=== PATIENT | male | born 1950 | race Caucasian/White ===

== ENCOUNTER 2020-03-30 00:43 | Outpatient (CLI) | payer MEDICARE, SELFPAY ==
[2020-03-30 16:39] LABS: SARS-CoV-2 RNA PCR Negative
== END 2020-03-30 00:44 | disposition home or self-care (01) ==
LOC: ANHCOVIDDT 00:43
PROVIDERS: PCP Family Medicine; Visit Provider Internal Medicine Gastroenterology
DX: Z01.812 Encounter for preprocedural laboratory examination (principal); Z20.828 Contact with and (suspected) exposure to other viral communicable diseases
CPT/HCPCS: 87635; C9803; U0003

== ENCOUNTER 2020-04-02 04:15 | Inpatient (IN) | payer MEDICARE, SELFPAY ==
[2020-04-02] VITALS (12 sets, daily range): BP systolic 132–172; BP diastolic 76–86; PULSE 63–74; RESP 20–24; TEMP 35.8–36.7; O2SAT 97–100; BMI 28.4
--- NOTE | 2020-04-02 04:32 | PC.NURSE ---
0348 RECEIVED REPORT FROM NILSA WELCH AT [facility].
--- NOTE | 2020-04-02 04:33 | ADMGEN ---
This patient, Jose Perez, was admitted to IMU Room 213-01 FROM [facility] PER STRETCHER 04/02/20 7924. Patient/family oriented to hospital policies and general routines including ID bracelet, bed and alarms, visiting hours, pain management, procedures, bathroom and other care routines, personal items, smoking policy, room service/diet, and visiting hours. Valuables list has been completed. Information on how to activate the Rapid Response Team has been discussed. Patient/Family are encouraged to report perceived risks to care and to ask questions if they do not understand what they are told or what they should do.
[2020-04-02 05:00] LABS: Basophils Percent Auto 0.2 % (0.2-1.2); Eosinophils Absolute Auto 0.1 K/mm3 (0-0.3); Eosinophils Percent Auto 0.5 % (0-4.4); Hematocrit 32.3 % (42.0-52.0); Hemoglobin 10.3 g/dL (14.0-18.0); Immature Granulocyte Absolute 0.04 K/mm3 (0.00-0.031); Immature Granulocyte Percent A 0.4 % (0-0.5); Lymphocytes Absolute Auto 0.92 K/mm3 (0.9-3.2); Lymphocytes Percent Auto 9.5 % (18.3-44.2); Mean Corpuscular HGB Conc 31.9 g/dl (32-36); Mean Corpuscular Hemoglobin 27.8 pg (26-34); Mean Corpuscular Volume 87.3 fl (80-100); Mean Platelet Volume 10.9 fl (7.4-10.4); Monocytes Absolute Auto 0.3 K/mm3 (0.1-0.6); Monocytes Percent Auto 3.4 % (2.6-8.5); Neutrophils Absolute Auto 8.3 K/mm3 (1.3-6.7); Platelet Count Result 223 k/mm3 (150-375); Red Cell Distribution Width 15.3 % (11.5-14.5); White Blood Count 9.6 K/mm3 (4.5-10.0)
[2020-04-02 05:16] LABS: Blood Urea Nitrogen 24 mg/dL (9-20); Carbon Dioxide 29 mmol/L (22-30); Chloride 100 mmol/L (98-107); Estimated CRCL calculation 31 ml/min; Estimated Glomerular Filt Rate 31; Glucose 109 mg/dL (75-110); Potassium 3.4 mmol/L (3.4-5.0); Sodium 137 mmol/L (137-145)
[2020-04-02 05:27] LABS: Troponin I 0.084 ng/mL (0.000-0.034)
--- NOTE | 2020-04-02 05:48 | PC.NURSE ---
0548 NOTIFIED OF PT. ADM. TO IMU AND ELEVATED TROP. AND THAT PT. WAS SCHEDULED FOR OP COLONOSCOPY. NO NEW ORDERS.
[2020-04-02 06:02] LABS: Thyroid Stimulating Hormone Reflex 0.461 uIU/mL (0.465-4.68)
[2020-04-02] MEDS: SODIUM CHLORIDE 0.9% IV 1,000 ML 100 ML IV CONT (06:21)
[2020-04-02 06:42] LABS: Free T4 Free Thyroxine Reflex 1.49 ng/dL (0.78-2.19)
--- NOTE | 2020-04-02 07:36 | PM.IMHP ---
H&P: HPI History of Present Illness Chief complaint: presyncope, elevated trop Narrative: Jose Perez is a 69 year old male with hx of CHF, AICD placement and CAD transferred from [place] for nausea, vomiting and diarrhea. Yesterday afternoon, patient developed watery diarrhea with nausea and vomiting. He is currently undergoing bowel prep screening colonoscopy. He consumed about half a gallon of GoLYTELY; his symptoms began about one hour after starting prep. No chest pain or shortness of breath. No abdominal pain or fever. No hematochezia. Patient had not eaten breakfast or lunch that day but only had coffee. Patient developed dizziness and lightheadedness and presented to outside ER for evaluation. The emergency room, patient's vital signs were stable. CT of the brain was normal. CXR clear. EKG showed normal sinus rhythm with 1st degree AV block and PVCs. T-wave changes in the lateral leads noted. BNP was 1390. Troponin was elevated 0.071. Creatinine was 2.0 with potassium 2.8 hemoglobin is low at 10.3. Patient may have had some blood in his stool with diarrhea. Patient was given Zofran, IV fluids, aspirin and potassium. There were no beds available so patient transferred to our facility for further care. Here, patient was started on IV fluids. Troponin remained elevated at 0.084 but flat. Creatinine 2.1. Old creatinine from 2017 was 1.4. COVID-19 test on March 30 was negative. Patient this morning feels well. He is requesting discharge. Patient has AICD for his cardiomyopathy. His AICD has not fired since placement. His last chemical stress test was 1 year ago and was normal. The patietn sees Dr Moreno, cardiology. Review of Systems Review of Systems: Narrative: Patient does have chronic tinnitus. Patient did have a 30 lb weight loss over the past 6 months. He has not been trying to lose weight. He denies any night sweats or fevers. All systems reviewed & are unremarkable except as noted in HPI and below PMFSH Past Medical History Medical History Aortic regurgitation Moderate by Echo 05/2019 CAD (coronary artery disease) History of myocardial infarction x2 and stents Cardiac defibrillator in situ Cardiomyopathy With history of AICD placement: Echo May 2019 with EF 25% with severe global HK, severe LV septal hypertrophy and DD grade 1. Severe LAE Constipation Dyslipidemia Gout History of CVA (cerebrovascular accident) 2014 Lumbar spinal stenosis Peripheral vascular disease With history of right femoral stent placement Weight loss Surgical History Surgical History History of AAA (abdominal aortic aneurysm) repair Hx of lumbosacral spine surgery 2016 Family History Family History Mother Myocardial infarct Father Myocardial infarct Sibling Heart disease Cerebrovascular accident Lung cancer Social History Social History (Updated 04/02/20 @ 09:47 by Eduar Pitt MD) Social History: Lives alone. . Smokes 1ppd x 40yrs. Denies alcohol or drug use. Full code. Nominates his sonMario to be the individual who would make decisions for him if he is unable. Smoking packs per day: 1 Smoking cigarettes per day: 20.0 Years smoked: 40 Smoking pack-years: 40.00 Smoking status: Former smoker Tobacco type: cigarettes Smoking end date: 10/25/18 Alcohol intake: former Drinks per week: 3 Substance use: never Gender identity (if verbalized by the patient): Male Spiritual care concerns: No Meds Home Medications and Allergies Home Medications Medication Instructions Recorded Confirmed Type carvedilol 25 mg tablet 25 mg PO Q12H 09/05/19 04/02/20 History chlorthalidone 25 mg tablet 25 mg PO DAILY 09/05/19 04/02/20 History docusate sodium [Colace] 100 mg PO DAILY 03/28/20 04/02/20 History Allergies A
[2020-04-02 07:38] LABS: Total Triiodothyronine (T3) 1.01 NG/ML (0.97-1.69)
[2020-04-02 08:20] LABS: Troponin I 0.084 ng/mL (0.000-0.034)
--- NOTE | 2020-04-02 09:13 | PM.CNCAR ---
Assessment and Plan Assessment and plan (1) Nausea vomiting and diarrhea: Code(s): R11.2 - Nausea with vomiting, unspecified; R19.7 - Diarrhea, unspecified Status: Acute Assessment and Plan: 69-year-old male with CAD, history of OR as per patient status post PCI/stenting; ischemic cardiomyopathy status post ICD placement, prep artery disease, history of right femoral to [id number] popliteal bypass with saphenous venous graft on 07/09/2017 at [facility], hypertension, dyslipidemia, history of CVA. Patient transfer from [facility] with complaints of nausea, vomiting, diarrhea after taking GoLYTELY for bowel preparation. He had associated symptoms of dizziness, which is likely secondary to dehydration. Patient's troponins are minimally elevated and are essentially flat, and non ACS related. He has baseline NYHA functional class III symptoms without significant changes lately. Patient may resume standard treatment for his CAD, ischemic cardiomyopathy once he is able to take p.o. medications. Echocardiogram with Doppler has been ordered by primary team, results are pending at this time. No additional cardiac workup would be anticipated unless otherwise indicated. Monitor renal function. Patient was advised to follow up with his primary registered nurse nursery at [facility]. I personally reviewed medical records from outside hospital including EKG, telemetry. (2) CAD (coronary artery disease): Qualifiers: Coronary Disease-Associated Artery/Lesion type: unspecified vessel or lesion type [place] vs. transplanted heart: [place] heart Code(s): I25.10 - Atherosclerotic heart disease of [place] coronary artery without angina pectoris Status: Acute (3) Cardiac defibrillator in situ: Code(s): Z95.810 - Presence of automatic (implantable) cardiac defibrillator Status: Acute Assessment and Plan: Follow-up with primary registered nurse nursery (4) Elevated troponin: Code(s): R79.89 - Other specified abnormal findings of blood chemistry Status: Acute Assessment and Plan: Nonspecific troponin elevation, non ACS related History of Present Illness History of Present Illness Consult date/time: 04/02/20 09:13 Date of consult 04/02/2020 Reason for consult: Dizziness Requesting physician:Dr Pitt Chief complaint: Nausea, vomiting, diarrhea, dizziness HPI: 69-year-old male with CAD, history of OR as per patient status post PCI/stenting; ischemic cardiomyopathy status post ICD placement, prep artery disease, history of right femoral to [id number]-[id number] popliteal bypass with saphenous venous graft on 07/09/2017 at [facility], hypertension, dyslipidemia, history of CVA. Patient was transferred from [facility] with complaints ofr nausea, vomiting and diarrhea. Patient states that he was getting GoLYTELY prep for colonoscopy. Yesterday, he started having diarrhea, nausea and vomiting associated with the episodes of dizziness. He denied chest pain. Patient has baseline NYHA functional class 3 symptoms, has dyspnea on mild exertion. With these symptoms, he went to [facility]. Apparently, they did not have telemetry beds available, and patient was transferred to [facility]. Based on the notes, in the ER, patient's vital signs were stable. CT of the brain was normal. EKG on this admission which I personally evaluated showed sinus rhythm, first-degree AV block, PVCs, intraventricular conduction delay, inferior infarct, probably old, T abnormality in the lateral leads. BNP was 1390. On telemetry, patient has been in sinus rhythm, atrial paced rhythm, PVCs. Since admission to [facility], patient states that he is feeling better now. 2 sets of troponins are minimally elevated and flat at 0.084. TSH is mildly low at 0.461. Remote echocardiogram from [facility] from 05/16/2011 showed ejection fraction 50% with
[2020-04-02] MEDS: carvediloL 25 MG TABLET PO (12:15)
[2020-04-02] MEDS: ASPIRIN 81 MG CHEWABLE TABLET PO (12:16)
--- NOTE | 2020-04-02 15:23 | PM.DS ---
DS: Admitting Diagnosis Admitting Diagnosis Admitting Diagnosis: Nausea with vomiting, unspecified DS: Discharge Diagnosis Discharge Diagnosis (1) Hypokalemia: Code(s): E87.6 - Hypokalemia Status: Acute Assessment and Plan: Potassium 2.8 related to the nausea and vomiting and the chlorthalidone. Potassium 3.4 today. Magnesium normal. (2) Nausea vomiting and diarrhea: Code(s): R11.2 - Nausea with vomiting, unspecified; R19.7 - Diarrhea, unspecified Status: Acute Assessment and Plan: Symptoms related to the bowel prep. Symptoms probably magnified related to the fact he did not eat prior to starting the bowel prep. Symptoms appear to have resolved. We advanced his diet and he toelrated this well. (3) Renal insufficiency: Code(s): N28.9 - Disorder of kidney and ureter, unspecified Status: Acute Assessment and Plan: Cr 2.1 here with only other value listed of 1.4 in May 2017. Did have n/v/d while taking chlorthalidone which could have led to dehydration. I have spoken with patient's regional sales representative and old labs were requested. Old labs show patient close to baseline renal function so patient has CKD 3. (4) Elevated troponin: Code(s): R79.89 - Other specified abnormal findings of blood chemistry Status: Acute Assessment and Plan: Trop elevated to 0.084 but flat. Could be related to transient HoTN (with the symptoms of dizziness). He denies any CP and SOB. He had stress test that was negative one year ago. EKG showing no acute findings. Discussed with cardiology who felt no further intervention was required. Continue Coreg and add ASA. (5) Cardiac defibrillator in situ: Code(s): Z95.810 - Presence of automatic (implantable) cardiac defibrillator Status: Acute Assessment and Plan: AICD in place due to CMP. This has not fired on him. (6) CAD (coronary artery disease): Qualifiers: Coronary Disease-Associated Artery/Lesion type: unspecified vessel or lesion type [place] vs. transplanted heart: [place] heart Code(s): I25.10 - Atherosclerotic heart disease of [place] coronary artery without angina pectoris Status: Acute Assessment and Plan: Patient with known coronary disease with hx of myocardial infarction x2. Currently on beta-tate only. He was on atorvastatin, Plavix and aspirin in the past. He states that he was taken off of the ASA and Lipitor. Last saw his regional sales representative 3 months ago. Continue Coreg. He is agreeable with ASA. Recommend he discuss with [employer]isher about statin therapy but will hold on this now since unclear why he was taken off of this. (7) Hypertension: Qualifiers: Hypertension type: essential hypertension Qualified Code(s): I10 - Essential (primary) hypertension Code(s): I10 - Essential (primary) hypertension Status: Acute Assessment and Plan: Blood pressure noted. We resumed Coreg. (8) Cardiomyopathy: Qualifiers: Cardiomyopathy type: unspecified Qualified Code(s): I42.9 - Cardiomyopathy, unspecified Code(s): I42.9 - Cardiomyopathy, unspecified Status: Acute Assessment and Plan: Patient with EF of 25% and global LV hypokinesis. Discussed with Cardiology this morning. Not on MILADY inhibitor. They did not feel an echocardiogram was required and as such will cancel this. Patient currently just on carvedilol which was resumed. (9) Weight loss: Code(s): R63.4 - Abnormal weight loss Status: Acute Assessment and Plan: Patient with unexplained weight loss. Agree with colonoscopy for screening purposes. This needs to be arranged again as outpatient. (10) Tobacco use: Code(s): Z72.0 - Tobacco use Status: Acute Assessment and Plan: Patient has been educated about the benefits of smoking cessation DS: Summary Hospital Course R
== END 2020-04-02 17:39 | disposition home or self-care (01) | DRG 641 ==
PROVIDERS: Admitting Provider Family Medicine; PCP Family Medicine; Visit Provider Internal Medicine
DX: E87.6 Hypokalemia (principal); I42.9 Cardiomyopathy, unspecified; N28.9 Disorder of kidney and ureter, unspecified; T50.2X5A Adverse effect of carbonic-anhydrase inhibitors, benzothiadiazides and other diuretics, initial encounter; R55 Syncope and collapse; R79.89 Other specified abnormal findings of blood chemistry; I25.10 Atherosclerotic heart disease of native coronary artery without angina pectoris; I10 Essential (primary) hypertension; R63.4 Abnormal weight loss; E86.0 Dehydration; I25.5 Ischemic cardiomyopathy; E78.5 Hyperlipidemia, unspecified; M48.061 Spinal stenosis, lumbar region without neurogenic claudication; I25.2 Old myocardial infarction; Z95.5 Presence of coronary angioplasty implant and graft; Z86.73 Personal history of transient ischemic attack (TIA), and cerebral infarction without residual deficits; Z95.810 Presence of automatic (implantable) cardiac defibrillator; Z87.891 Personal history of nicotine dependence
CPT/HCPCS: 36415; 80048; 83735; 84439; 84443; 84480; 84484; 85025; 87635; 97161; 97165; A9270; C9803; J7030; U0003

== ENCOUNTER 2020-10-22 14:05 | Outpatient (CLI) | payer MEDICARE, SELFPAY ==
--- NOTE | ~2020-10-22 | US_ITS ---
EXAMINATION: US venous doppler LE EXAM DATE: 10/22/2020 15:45 INDICATION: Bilateral leg edema. TECHNIQUE: Multiple grayscale, color flow and Doppler images of the lower extremity deep venous syste ms bilaterally were obtained and reviewed. There is no prior study for comparison. FINDINGS: Right side: The right common femoral, femoral and profunda veins demonstrate normal color flow, respi ratory variation, augmentation and compressibility. Compressibility, color flow confirmed within the right popliteal, posterior tibial, peroneal, and greater saphenous veins. Left side: The left common femoral, femoral and profunda veins demonstrate normal color flow, respira tory variation, augmentation and compressibility. Compressibility, color flow confirmed within the l eft popliteal, posterior tibial, peroneal, and greater saphenous veins. IMPRESSION: 1. No lower extremity deep venous thrombosis bilaterally. Reviewed, dictated and finalized at location B. [employer]
--- NOTE | ~2020-10-22 | US_ITS ---
EXAMINATION: US art doppler w press LE YANNA EXAM DATE: 10/22/2020 15:45 INDICATION: R09.89 - Other specified symptoms and signs involving the circulatory and respiratory sys tems. Poor circulation. Right femoral stent. Hypertension. Leg tingling and numbness and pain. Reques gavi as STAT examination. TECHNIQUE: Segmental pressures and plethysmographic and Doppler waveforms of the brachial and lower e xtremity arteries were obtained. There is no prior study for comparison. FINDINGS: Right and left brachial artery pressures of 216 mm Hg and 219 mm Hg, respectively, are concordant (no rmal difference <= 30 mmHg). RIGHT LEG: The ankle-brachial index (KAYLEY) is 0.51 (normal >= 0.9-1). The great toe-brachial index (TBI) is 0.36 (normal >= 0.65). The lower extremity ratios, segmental pressure gradients as follows; Dorsalis pedis: 0.42 (92 mmHg). Reversed flow direction. Posterior tibial: 0.51 (112 mmHg). (Normal gradients <= 20-30 mmHg between adjacent levels on the same leg or the same levels on the two legs). Arterial waveforms are monophasic. LEFT LEG: The ankle-brachial index (KAYLEY) is 0.78 (normal >= 0.9-1). The great toe-brachial index (TBI) is 0.40 (normal >= 0.65). The lower extremity ratios, segmental pressure gradients as follows; Dorsalis pedis: 0.55 (120 mmHg). Posterior tibial: 0.78 (171 mmHg). (Normal gradients <= 20-30 mmHg between adjacent levels on the same leg or the same levels on the two legs). Arterial waveforms are monophasic. IMPRESSION: 1. Hypertensive crisis, systolic blood pressure of 219 mmHg. 2. Right ankle-brachial index 0.51, moderately decreased. 3. Left ankle-brachial index 0.78, mildly decreased. 4. Flow direction reversal in the right dorsalis pedis artery. Reviewed, dictated and finalized at location B. IC PHYSICS PROFESSOR
== END 2020-10-22 14:06 | disposition home or self-care (01) ==
PROVIDERS: PCP Family Medicine; Visit Provider Nurse Practitioner Family
DX: R09.89 Other specified symptoms and signs involving the circulatory and respiratory systems (principal); R60.0 Localized edema; I16.9 Hypertensive crisis, unspecified
CPT/HCPCS: 93923; 93970

== ENCOUNTER → 2020-12-18 11:15 | Emergency (ER) | payer MEDICARE, SELFPAY ==
[2020-12-18] VITALS (60 sets, daily range): BP systolic 106–162; BP diastolic 59–90; PULSE 55–82; RESP 12–22; TEMP 36.6–36.7; O2SAT 96–100
--- NOTE | 2020-12-18 11:42 | ECG_ITS ---
Measurements Intervals [employer] Rate: 73 P: 71 WV: 209 QRS: 37 QRSD: 142 T: 156 QT: 431 QTc: 477 Interpretive Statements SINUS RHYTHM INTRAVENTRICULAR CONDUCTION DELAY CONSIDER INFERIOR INFARCT, AGE INDETERMINATE BORDERLINE ST-T WAVE ABNORMALITY- LAT/HIGH LAT LEADS ABNORMAL ECG Electronically Signed On 12-18-2020 12:04:39 PIPE INSTALLER by Siva Weiner D.O.
[2020-12-18] MEDS: SODIUM CHLORIDE 0.9% IV 1,000 ML 150 ML IV CONT (11:54)
[2020-12-18 11:57] LABS: Basophils Absolute Auto 0.1 K/mm3 (0.0-0.1); Basophils Percent Auto 0.7 % (0.2-1.2); Eosinophils Absolute Auto 0.3 K/mm3 (0-0.3); Eosinophils Percent Auto 3.6 % (0-4.4); Hematocrit 25.2 % (42.0-52.0); Hemoglobin 7.9 g/dL (14.0-18.0); Immature Granulocyte Absolute 0.05 K/mm3 (0.00-0.031); Immature Granulocyte Percent A 0.6 % (0-0.5); Lymphocytes Absolute Auto 0.86 K/mm3 (0.9-3.2); Lymphocytes Percent Auto 10.4 % (18.3-44.2); Mean Corpuscular HGB Conc 31.3 g/dl (32-36); Mean Corpuscular Volume 92.6 fl (80-100); Mean Platelet Volume 10.8 fl (7.4-10.4); Monocytes Absolute Auto 0.5 K/mm3 (0.1-0.6); Monocytes Percent Auto 5.7 % (2.6-8.5); Neutrophils Absolute Auto 6.6 K/mm3 (1.3-6.7); Platelet Count Result 245 k/mm3 (150-375); Red Blood Count 2.72 M/mm3 (4.6-6.20); White Blood Count 8.3 K/mm3 (4.5-10.0)
[2020-12-18 12:09] LABS: Alanine Aminotransferase 13 U/L (4-50); Albumin Level 3.8 g/dL (3.5-5.1); Alkaline Phosphatase 37 U/L (38-126); Anion Gap 9 mmol/L (8-16); Aspartate Amino Transferase 21 U/L (17-59); Bilirubin,Total 0.5 mg/dL (0.2-1.3); Blood Urea Nitrogen 32 mg/dL (9-20); Carbon Dioxide 28 mmol/L (22-30); Chloride 105 mmol/L (98-107); Estimated Glomerular Filt Rate 27; Glucose 110 mg/dL (75-110); Lipase 126 U/L (23-300); Potassium 3.5 mmol/L (3.4-5.0); Sodium 142 mmol/L (137-145)
[2020-12-18 12:24] LABS: Troponin I 0.044 ng/mL (0.000-0.034)
[2020-12-18 13:04] LABS: Add Urine Microscopic? YES; Appearance Urine Clear (Clear); Bacteria Urine Trace /hpf; Bilirubin Urine Negative (Negative); Blood Urine Negative (Negative); Color Urine Yellow (Yellow); Glucose Urine UA Negative (Negative); Ketones Urine Negative (Negative); Leukocyte Esterase Ur 3+ LEU/UL (Negative); Nitrate Urine Positive (Negative); Protein Urine 3+ mg/dL (Negative); RBC Urine 0-2 /hpf (0-2); Specific Grav Ur 1.013 (1.001-1.035); Urobilinogen Urine Negative mg/dL (<2.0)
--- NOTE | 2020-12-18 13:11 | PC.NURSE ---
At approx 1255 assisted pt. to standing at bedside so he could void in urinal. Remained with pt. until positioned back in bed.
--- NOTE | 2020-12-18 13:23 | ED.WEAKNESS ---
HPI - Weakness General Chief complaint: Weakness Stated complaint: weakness Time Seen by Provider: 12/18/20 11:23 Source: patient Mode of arrival: EMS Limitations: no limitations History of Present Illness HPI Narrative: 70-year-old male Sent to the ER via EMS after throwing up once in his doctor's office today Patient reports he felt basically fine this morning but about 10 minutes after he got to the office he just got nauseated and threw up once, and then he felt better Here he has no particular complaints Notably he is 4 weeks status post a revascularization procedure on his right leg which was done at [facility] [place] [place] like he was having rest pain at times before the operation and he is not having that anymore Also postoperatively he had urinary retention and had a Balbuena catheter until about 2 and half weeks ago, but does not have any urinary symptoms right now He also has cardiomyopathy with a ejection fraction between 20 to 25% and an AICD Related Data Home Medications Medication Instructions Recorded Confirmed carvedilol 25 mg tablet 25 mg PO Q12H 09/05/19 11/01/20 chlorthalidone 25 mg tablet 25 mg PO DAILY 09/05/19 11/01/20 atorvastatin 40 mg tablet 40 mg PO DAILY 12/18/20 hydrocodone 5 mg-acetaminophen 325 1 tablet PO Q8H PRN 12/18/20 mg tablet tamsulosin 0.4 mg capsule 0.4 mg PO DAILY 12/18/20 Allergies Allergy/AdvReac Type Severity Reaction Status Date / Time No Known Allergies Allergy Verified 12/18/20 08:33 Review of Systems Review of Systems: All systems reviewed & are unremarkable except as noted in HPI and below Constitutional: Constitutional: Denies chills, Reports fatigue, Denies fever(s), Denies headache(s) and Denies weakness Eyes: Eyes: Reports no additional eye complaints and Denies change in vision ENT: Denies headache(s), Denies epistaxis, Denies nasal congestion and Denies sore throat Cardiovascular: Cardiovascular: Denies chest pain, Denies leg edema, Denies palpitations and Denies dyspnea Respiratory: Respiratory: Denies cough, Denies dyspnea and Denies wheezing Gastrointestinal: Gastrointestinal: Denies abdominal pain, Denies diarrhea, Reports nausea and Reports vomiting Genitourinary: Genitourinary: Denies hematuria, Denies dysuria and Denies urinary frequency Musculoskeletal: Musculoskeletal: Denies deformity, Denies arthralgias, Reports joint swelling, Denies muscle weakness and Denies numbness Integumentary/Breasts: Skin/Breast: Denies rash and Denies wounds Neurologic: Denies headache(s), Denies focal weakness, Reports numbness and Denies weakness Psychiatric: Psychiatric: Reports no additional psychiatric complaints Endocrine: Endocrine: Reports fatigue and Denies palpitations Hematologic/Lymphatic: Hematologic/Lymphatic: Denies easy bleeding and Denies easy bruising Allergic/Immunologic: Allergic/Immunologic: Denies wheezing [facility] Past Medical History Medical History (Updated 12/18/20 @ 17:47 by Aric Leon MD) Aortic regurgitation Moderate by Echo 05/2019 BMI 28.0-28.9,adult CAD (coronary artery disease) History of myocardial infarction x2 and stents Cardiac defibrillator in situ Cardiomyopathy With history of AICD placement: Echo May 2019 with EF 25% with severe global HK, severe LV septal hypertrophy and DD grade 1. Severe LAE Colon cancer screening Constipation Constipation Dyslipidemia Gout History of CVA (cerebrovascular accident) 2014 Lumbar spinal stenosis Peripheral vascular disease With history of right femoral stent placement Tobacco abuse Weight loss Surgical History Surgical History History of AAA (abdominal aortic aneurysm) repair Hx of lumbosacral spine surgery 2016 Family History Family History Mother Myocardial infarct Father Myocardial infarct Sibling Heart disease Cerebrovascular accident
[2020-12-18 14:23] LABS: Lactic Acid Reflex 0.8 mmol/L (0.7-2.1)
--- NOTE | 2020-12-18 15:36 | PC.NURSE ---
Attempted to collect repeat troponin from pt. Pt refused and began cursing at staff. Pt states he would like to leave. ERP made aware.
[2020-12-18 16:21] LABS: Troponin I 0.048 ng/mL (0.000-0.034)
[2020-12-18] MEDS: ENOXAPARIN 100 MG/ML SYRINGE 85 MG SUB-Q (18:17)
[2020-12-18 18:58] LABS: Troponin I 0.053 ng/mL (0.000-0.034)
--- NOTE | 2020-12-18 19:20 | PC.NURSE ---
Pt's family member to nurses station requesting pt sign out AMA. This RN to bedside to speak with pt. Pt and family member would like to leave AMA because they are concerned about missing cardiology appointment tomorrow. Dr. Leon informed. Pt and family agreeable to staying until speaking with ERP.
--- NOTE | 2020-12-18 19:51 | PC.NURSE ---
pt left er at 1944 by w/v. with son. pt signed out ning REYES aware. paperwork signed
== END | disposition left against medical advice (07) ==
PROVIDERS: Emergency Medicine; Emergency Provider Emergency Medicine; PCP Family Medicine
DX: I42.9 Cardiomyopathy, unspecified (principal); I73.9 Peripheral vascular disease, unspecified; R74.8 Abnormal levels of other serum enzymes; Z95.810 Presence of automatic (implantable) cardiac defibrillator; I25.10 Atherosclerotic heart disease of native coronary artery without angina pectoris; I25.2 Old myocardial infarction; Z95.5 Presence of coronary angioplasty implant and graft; E78.5 Hyperlipidemia, unspecified; M10.9 Gout, unspecified; Z86.73 Personal history of transient ischemic attack (TIA), and cerebral infarction without residual deficits; I35.1 Nonrheumatic aortic (valve) insufficiency; F17.210 Nicotine dependence, cigarettes, uncomplicated
CPT/HCPCS: 36415; 80053; 81001; 83605; 83690; 84484; 85025; 93005; 96360; 96361; 96372; 99284; J1650; J7030

== ENCOUNTER 2021-01-08 11:35 | Outpatient (CLI) | payer MEDICARE, SELFPAY ==
--- NOTE | ~2021-01-08 | CT_ITS ---
EXAMINATION: CT brain wo con DATE: 01/08/2021 11:56 INDICATION: Other fatigue. Headache and dizziness. TECHNIQUE: Computed tomography (CT) of the head was performed without intravenous contrast. The mA wa s adjusted according to patient size. Iterative reconstruction technique was employed. The dose-lengt h product was 605.33 mGy-cm. COMPARISON: None FINDINGS: There are scattered areas of low attenuation in the cerebral white matter. There is an infa rct in right frontal lobe. There is an old infarct in the right basal ganglia. There is an infarct in left caudate nucleus. There is no intracranial hemorrhage or abnormal mass lesion. The ventricles ar e normal in size. There is mild mucosal thickening in the paranasal sinuses. The orbits are normal. T he mastoid air cells are normal. IMPRESSION: 1. Right frontal lobe infarct, likely acute or subacute. Age-indeterminate infarct in left caudate nu cleus. 2. Old infarct in the right basal ganglia. 3. Extensive nonspecific cerebral white matter disease, which likely represents chronic small vessel ischemic disease. Reviewed, dictated and finalized at location A. IMPRESSION: 1. Right frontal lobe infarct, likely acute or subacute. Age-indeterminate infa rct in left caudate nucleus. 2. Old infarct in the right basal ganglia. 3. Extensive nonspecific cerebral white matter disease, which likely represents chronic small vessel ischemic disease.
== END 2021-01-08 11:36 | disposition home or self-care (01) ==
PROVIDERS: PCP Family Medicine; Visit Provider Nurse Practitioner Family
DX: R53.83 Other fatigue (principal); R11.10 Vomiting, unspecified; R93.0 Abnormal findings on diagnostic imaging of skull and head, not elsewhere classified
CPT/HCPCS: 70450

== ENCOUNTER 2021-01-08 12:16 | Inpatient (IN) | payer MEDICARE, SELFPAY ==
[2021-01-08] VITALS (34 sets, daily range): BP systolic 137–181; BP diastolic 57–126; PULSE 58–71; RESP 9–33; TEMP 36.6–36.8; O2SAT 84–100; BMI 26.4
--- NOTE | ~2021-01-08 | US_ITS ---
EXAMINATION: US aorta DATE: 01/10/2021 08:08 INDICATION: Abdominal pulsatile mass. Abdominal bruit. TECHNIQUE: Grayscale, color Doppler, and pulsed Doppler images of the aorta and common iliac arteries were obtained. COMPARISON: Lumbar spine MRI 07/30/2011 FINDINGS: The aorta demonstrates a 5.0 x 5.0 cm fusiform infrarenal aneurysm. The right common iliac artery ana sures 2.2 cm. The left common iliac artery measures 1.8 cm. IMPRESSION: 1. 5.0 cm fusiform infrarenal aneurysm. Abdomen and pelvis CTA is recommended. Reviewed, dictated and finalized at location A.
--- NOTE | ~2021-01-08 | XR_ITS ---
EXAMINATION: XR chest 1V portable EXAM DATE: 01/08/2021 13:56 INDICATION: Weakness. TECHNIQUE: Portable AP frontal chest x-ray was obtained. Comparison is made to prior examination from 05/15/2011. FINDINGS: There is a dual lead pacemaker/AICD seen with leads projecting over the expected locations of the right atrial appendage and right ventricle. There is cardiomegaly and pulmonary vascular conge stion. Right upper lobe granuloma. No confluent consolidation, pneumothorax or pleural effusion suspe cted. Mild to moderate thoracic spondylosis. IMPRESSION: Cardiomegaly, congestive changes. Reviewed, dictated and finalized at location A.
--- NOTE | ~2021-01-08 | US_ITS ---
EXAMINATION: US carotid duplex BI DATE: 01/09/2021 12:20 INDICATION: Right frontal lobe infarct. Acute cerebrovascular accident. TECHNIQUE: Grayscale, color Doppler, and pulsed Doppler images of the cervical carotid arteries were obtained. The degree of vessel stenosis is placed in one of the following categories: normal, <50%, 5 0-69%, >=70% but less than near-occlusion, near-occlusion, or total occlusion. Note that percent sten osis relative to normal distal artery lumen diameter is indirectly measured from velocity measurement s as described by Srini, et al. Radiology 2003; [id number]:[id number]. COMPARISON: None. FINDINGS: RIGHT: The right common carotid artery (CCA) peak systolic velocity (PSV) is 81 cm/s. The right internal car otid artery (ICA) PSV is 287 cm/s. The right ICA end-diastolic velocity (EDV) is 50 cm/s. The right I CA/CCA PSV ratio is 3.6. Grayscale and color Doppler images yield an estimate of >=50% diameter reduc tion from plaque in the ICA. There is antegrade flow in the right vertebral artery. LEFT: The left CCA PSV is 155 cm/s. The left ICA PSV is 94 cm/s. The left ICA EDV is 29 cm/s. The left ICA/ CCA PSV ratio is 0.6. Grayscale and color Doppler images yield an estimate of <50% diameter reduction from plaque in the ICA. There is antegrade flow in the left vertebral artery. IMPRESSION: 1. >=70% stenosis in the right internal carotid artery, but less than near occlusion. 2. <50% stenosis in the left internal carotid artery. Reviewed, dictated and finalized at location A. IMPRESSION: 1. >=70% stenosis in the right internal carotid artery, but less than near occl usion. 2. <50% stenosis in the left internal carotid artery.
--- NOTE | 2021-01-08 13:30 | PC.NURSE ---
Pt kobe Mario to come to ED. Phone number is [phone].
--- NOTE | 2021-01-08 13:41 | ECG_ITS ---
Measurements Intervals [place] Rate: 66 P: 57 FL: 198 QRS: 57 QRSD: 149 T: 76 QT: 443 QTc: 465 Interpretive Statements SINUS RHYTHM INTRAVENTRICULAR CONDUCTION DELAY CONSIDER INFERIOR INFARCT, AGE INDETERMINATE BORDERLINE ST-T WAVE ABNORMALITY- LAT/HIGH LAT LEADS BASELINE ARTIFACT- I, II, III, AVR, AVL, AVF ABNORMAL ECG Electronically Signed On 01-08-2021 20:14:05 CDT by Siva Weiner D.O.
--- NOTE | 2021-01-08 13:53 | PC.NURSE ---
pts son contacted and aware that father is being seen in the ed. states is en route from [place].
[2021-01-08] MEDS: ONDANSETRON INJ 4 MG/2 ML VIAL IV PUSH (14:09)
[2021-01-08 14:36] LABS: Potassium 3.3 mmol/L (3.4-5.0)
[2021-01-08 14:41] LABS: Anion Gap 9 mmol/L (8-16); Blood Urea Nitrogen 30 mg/dL (9-20); Calcium 9.5 mg/dL (8.4-10.2); Carbon Dioxide 30 mmol/L (22-30); Chloride 99 mmol/L (98-107); Estimated CRCL calculation 27 ml/min; Estimated Glomerular Filt Rate 27; Glucose 114 mg/dL (75-110); Sodium 138 mmol/L (137-145)
[2021-01-08 14:47] LABS: Basophils Absolute Auto 0.1 K/mm3 (0.0-0.1); Basophils Percent Auto 0.5 % (0.2-1.2); Eosinophils Absolute Auto 0.3 K/mm3 (0-0.3); Eosinophils Percent Auto 3.4 % (0-4.4); Hemoglobin 9.2 g/dL (14.0-18.0); Immature Granulocyte Absolute 0.03 K/mm3 (0.00-0.031); Immature Granulocyte Percent A 0.3 % (0-0.5); Lymphocytes Absolute Auto 0.89 K/mm3 (0.9-3.2); Lymphocytes Percent Auto 9.2 % (18.3-44.2); Mean Corpuscular HGB Conc 31.7 g/dl (32-36); Mean Corpuscular Hemoglobin 28.9 pg (26-34); Mean Corpuscular Volume 91.2 fl (80-100); Mean Platelet Volume 11.2 fl (7.4-10.4); Monocytes Absolute Auto 0.5 K/mm3 (0.1-0.6); Monocytes Percent Auto 5.5 % (2.6-8.5); Neutrophils Absolute Auto 7.8 K/mm3 (1.3-6.7); Neutrophils Percent Auto 81.1 % (45.5-73.1); Platelet Count Result 213 k/mm3 (150-375); Red Blood Count 3.18 M/mm3 (4.6-6.20); Red Cell Distribution Width 15.8 % (11.5-14.5); White Blood Count 9.7 K/mm3 (4.5-10.0)
[2021-01-08 14:54] LABS: INR 1.1; Prothrombin Time 14.6 Seconds (11.1-14.7)
[2021-01-08 14:55] LABS: Partial Thromboplastin Time 32.8 SECONDS (22.3-36.8)
[2021-01-08 14:57] LABS: Troponin I 0.066 ng/mL (0.000-0.034)
--- NOTE | 2021-01-08 15:12 | ED.GENADULT ---
HPI - General Adult General Chief complaint: Neuro Symptoms/Deficit Stated complaint: sent from xray, has no idea why Time Seen by Provider: 01/08/21 13:26 Source: patient Mode of arrival: ambulatory Limitations: other (poor historian) History of Present Illness HPI narrative: This patient is a 70 year old male with history of CVA, PAD, CAD who presents for evaluation of a stroke. Patient states he was evaluated by his primary care provider today for intermittent weakness and dizziness for 2 weeks. He had an outpatient CT head performed that shows a right frontal lobe infarct, acute vs sub acute. He denies focal weakness, speech change, numbness or tingling. He denies chest pain, or sob. He states had a stroke years ago . Patient had right femoral PT bypass [address] Young at [facility]. He has necrotic ulcers to toes on bilateral feet that are being followed by vascular surgery. He has an appointment on 01/14/21. His wounds are being dressed daily. Related Data Home Medications Medication Instructions Recorded Confirmed carvedilol 25 mg tablet 25 mg PO Q12H 09/05/19 01/08/21 chlorthalidone 25 mg tablet 25 mg PO DAILY 09/05/19 01/08/21 atorvastatin 40 mg tablet 40 mg PO HS 12/18/20 01/08/21 tamsulosin 0.4 mg capsule 0.4 mg PO DAILY 12/18/20 01/08/21 [id number]-[id number]-FA-vit K 1 tablet PO DAILY 01/08/21 01/08/21 [Adults Multivitamin] pantoprazole 40 mg PO QAM 01/08/21 01/08/21 Allergies Allergy/AdvReac Type Severity Reaction Status Date / Time No Known Allergies Allergy Verified 01/08/21 10:26 Review of Systems Review of Systems: All systems reviewed & are unremarkable except as noted in HPI and below Constitutional: Constitutional: Denies chills and Denies fever(s) Cardiovascular: Cardiovascular: Denies chest pain Respiratory: Respiratory: Denies cough and Denies dyspnea Gastrointestinal: Gastrointestinal: Denies abdominal pain, Reports nausea and Reports vomiting Integumentary/Breasts: Skin/Breast: Reports skin ulcer Neurologic: Reports dizziness PMFSH Past Medical History Medical History (Updated 01/08/21 @ 23:41 by Sol Cruz MD) Aortic regurgitation Moderate by Echo 05/2019 BMI 26.0-26.9,adult BMI 28.0-28.9,adult CAD (coronary artery disease) History of myocardial infarction x2 and stents Cardiac defibrillator in situ Cardiomyopathy With history of AICD placement: Echo May 2019 with EF 25% with severe global HK, severe LV septal hypertrophy and DD grade 1. Severe LAE Colon cancer screening Constipation Constipation Dietary counseling and surveillance (06/15/16) Dyslipidemia Excessive cerumen in both ear canals Gout Hematuria History of CVA (cerebrovascular accident) 2014 History of heart attack Lumbar spinal stenosis Mass on back Mixed hyperlipidemia PAD (peripheral artery disease) Peripheral vascular disease With history of right femoral stent placement Poor kidney function Routine physical examination Screening for prostate cancer Screening for thyroid disorder Screening, lipid Tobacco abuse Urinary hesitancy Vascular disorder Weight loss Surgical History Surgical History History of AAA (abdominal aortic aneurysm) repair Hx of lumbosacral spine surgery 2016 S/P insertion of iliac artery stent Family History Family History Mother Myocardial infarct Cerebrovascular accident Hypertension Father Myocardial infarct Heart disease Hypertension Cerebrovascular accident Sibling Cerebrovascular accident Lung cancer Heart disease Social History Social History Social History: Lives with his girlfriend and his son. . Smokes 1ppd x 40yrs. Denies alcohol or drug use. Full code. Nominates his son, Mario to be the individual who would make decisions for
[2021-01-08] MEDS: ASPIRIN 81 MG CHEWABLE TABLET 324 MG PO (16:35)
--- NOTE | 2021-01-08 18:40 | ADMGEN ---
This patient, Jose Perez, was admitted to IMU Room 211-01 at 1839. Patient/family oriented to hospital policies and general routines including ID bracelet, bed and alarms, visiting hours, pain management, procedures, bathroom and other care routines, personal items, smoking policy, room service/diet, and visiting hours. Information on how to activate the Rapid Response Team has been discussed. Patient/Family are encouraged to report perceived risks to care and to ask questions if they do not understand what they are told or what they should do.
[2021-01-09] VITALS (15 sets, daily range): BP systolic 145–160; BP diastolic 47–68; PULSE 60–74; RESP 12–20; TEMP 35.9–37.1; O2SAT 97–100
--- NOTE | 2021-01-09 02:31 | PM.IMHP ---
H&P: HPI History of Present Illness Date/Time: 01/09/21 02:31 Chief Complaint: Intermittent dizziness for 2 weeks++ Narrative: This is a 70-year-old male with known history of previous CVA, peripheral artery disease, and coronary artery disease who presented to the hospital with a complaint of intermittent generalized weakness and dizziness for the past 2 weeks. The patient describes having periods of dizziness that coming go. He denies any recent head trauma or passing out. He also denies any seizure-like activity. The patient has not had any headaches, nausea, vomiting, blurry vision, double vision, facial droop, slurred speech, difficulty swallowing, numbness, tingling, or focal weakness. He recently had right femoral bypass surgery 2 months ago and says that his vascular surgeon wants to do of bypass on the left side as well secondary to necrotic ulcers on his toes bilaterally. The patient was evaluated emergency room and CT head demonstrated a possible acute versus subacute right frontal lobe infarction. Neurology, Dr. Otero has been consulted and has asked that we admit the patient to the hospital for further care. On my encounter with the patient tonight he no longer has any dizziness and is completely asymptomatic. His only complaint appears to be his chronic discomfort of bilateral toes due to his vascular insufficiency. Review of Systems Review of Systems: All systems reviewed & are unremarkable except as noted in HPI and below PMFSH Past Medical History Medical History Aortic regurgitation Moderate by Echo 05/2019 BMI 26.0-26.9,adult BMI 28.0-28.9,adult CAD (coronary artery disease) History of myocardial infarction x2 and stents Cardiac defibrillator in situ Cardiomyopathy With history of AICD placement: Echo May 2019 with EF 25% with severe global HK, severe LV septal hypertrophy and DD grade 1. Severe LAE Colon cancer screening Constipation Constipation Dietary counseling and surveillance (06/15/16) Dyslipidemia Excessive cerumen in both ear canals Gout Hematuria History of CVA (cerebrovascular accident) 2014 History of heart attack Lumbar spinal stenosis Mass on back Mixed hyperlipidemia PAD (peripheral artery disease) Peripheral vascular disease With history of right femoral stent placement Poor kidney function Routine physical examination Screening for prostate cancer Screening for thyroid disorder Screening, lipid Tobacco abuse Urinary hesitancy Vascular disorder Weight loss Surgical History Surgical History History of AAA (abdominal aortic aneurysm) repair Hx of lumbosacral spine surgery 2016 S/P insertion of iliac artery stent Family History Family History Mother Myocardial infarct Cerebrovascular accident Hypertension Father Myocardial infarct Heart disease Hypertension Cerebrovascular accident Sibling Cerebrovascular accident Lung cancer Heart disease Social History Social History Social History: Lives with his girlfriend and his son. . Smokes 1ppd x 40yrs. Denies alcohol or drug use. Full code. Nominates his son, Mario to be the individual who would make decisions for him if he is unable. Smoking packs per day: 0.5 Smoking cigarettes per day: 10.0 Years smoked: 50 Smoking pack-years: 25.00 Smoking status: Current some day smoker Tobacco type: cigarettes Smoking end date: 10/25/18 Alcohol intake: never Drinks per week: 3 Substance use: never Gender identity (if verbalized by the patient): Male Spiritual care concerns: No Meds Home Medications and Allergies Home Medications Medication Instructions Recorded Confirmed Type carvedilol 25 mg tablet 25 mg PO Q12H 09/05/19 01/08/21 History chlorthalidone 25
[2021-01-09] MEDS: carvediloL 25 MG TABLET PO ×3 (02:47→21:20)
[2021-01-09 03:29] LABS: Troponin I 0.071 ng/mL (0.000-0.034)
[2021-01-09 05:20] LABS: Appearance Urine Clear (Clear); Bilirubin Urine Negative (Negative); Color Urine Yellow (Yellow); Glucose Urine UA Negative (Negative); Ketones Urine Negative (Negative); Leukocyte Esterase Ur 2+ LEU/UL (Negative); Nitrate Urine Positive (Negative); Protein Urine 2+ mg/dL (Negative); Specific Grav Ur 1.015 (1.001-1.035); Urobilinogen Urine 0.2 mg/dL (<2.0); pH Urine 8.5 (5.0-9.0)
[2021-01-09 05:31] LABS: Anion Gap 5 mmol/L (8-16); Blood Urea Nitrogen 30 mg/dL (9-20); Calcium 8.8 mg/dL (8.4-10.2); Carbon Dioxide 32 mmol/L (22-30); Chloride 101 mmol/L (98-107); Estimated CRCL calculation 26 ml/min; Estimated Glomerular Filt Rate 26; Glucose 92 mg/dL (75-110); Potassium 3.3 mmol/L (3.4-5.0); Sodium 138 mmol/L (137-145)
[2021-01-09 05:39] LABS: Basophils Absolute Auto 0.1 K/mm3 (0.0-0.1); Basophils Percent Auto 0.6 % (0.2-1.2); Eosinophils Absolute Auto 0.5 K/mm3 (0-0.3); Eosinophils Percent Auto 5.3 % (0-4.4); Hemoglobin 8.2 g/dL (14.0-18.0); Immature Granulocyte Absolute 0.03 K/mm3 (0.00-0.031); Immature Granulocyte Percent A 0.3 % (0-0.5); Lymphocytes Absolute Auto 1.55 K/mm3 (0.9-3.2); Lymphocytes Percent Auto 15.8 % (18.3-44.2); Mean Corpuscular HGB Conc 31.5 g/dl (32-36); Mean Corpuscular Hemoglobin 28.7 pg (26-34); Mean Corpuscular Volume 90.9 fl (80-100); Mean Platelet Volume 11.3 fl (7.4-10.4); Monocytes Absolute Auto 0.6 K/mm3 (0.1-0.6); Monocytes Percent Auto 5.8 % (2.6-8.5); Neutrophils Absolute Auto 7.1 K/mm3 (1.3-6.7); Neutrophils Percent Auto 72.2 % (45.5-73.1); Platelet Count Result 213 k/mm3 (150-375); Red Blood Count 2.86 M/mm3 (4.6-6.20); Red Cell Distribution Width 15.9 % (11.5-14.5); White Blood Count 9.8 K/mm3 (4.5-10.0)
[2021-01-09 05:49] LABS: Add Urine Microscopic? YES; Blood Urine Trace (Negative)
[2021-01-09] MEDS: POTASSIUM CHLORIDE 20 MEQ TABLET PO (05:52)
--- NOTE | 2021-01-09 06:00 | ECHO_ITS ---
Patient Info Name: Jose Perez Age: 70 years : 1950 Gender: Male Ht: 70 in Wt: 184 lbs BSA: 2.04 m2 HR: 66 bpm BP: 160 / 66 mmHg Heart Rhythm: Sinus Rhythm Technical Quality: Good Exam Date: 01/09/2021 1:25 PM Exam Location: [facility] Pulmonary Patient Status: Inpatient Admit Date: 01/08/2021 Staff Ordering Physician: Sol rCuz MD Drying Oven Attendant: Liu Vasquez, HORACECS, RT Attending Provider: Jennifer Lopes MD Referring Physician: Anthony BAIG; Exam Type: CA echo doppler color flow Study Info Indications I63.219 - Cerebral infarction due to unspecified occlusion or stenosis of unspecified vertebral arteries Complete two-dimensional, color flow and Doppler transthoracic echocardiogram is performed. Strain analysis performed. Summary 1. Complete two-dimensional, color flow and Doppler transthoracic echocardiogram is performed. 2. Left ventricular chamber dimension is moderately enlarged. 3. Left ventricular systolic function is severely reduced, estimated at 25-30%. 4. The infero posterior segments are akinetic. 5. Left atrial chamber dimension is moderately enlarged. 6. There is mild aortic valve regurgitation. 7. There is mild aortic valve sclerosis. 8. Compared with study an outside laboratory in 2019 findings are essentially unchanged. Left Ventricle Left ventricular chamber dimension is moderately enlarged. Left ventricular systolic function is severely reduced, estimated at 25-30%. The left ventricular diastolic function is grade I diastolic dysfunction. The infero posterior segments are akinetic. Right Ventricle Right ventricular chamber dimension is normal. Left Atria Left atrial chamber dimension is moderately enlarged. Right Atria Right atrial chamber dimension is normal. Aortic Valve The aortic valve is trileaflet. There is mild aortic valve sclerosis. There is mild aortic valve regurgitation. Pulmonic Valve The pulmonic valve is not well visualized. Mitral Valve The mitral valve has normal leaflets. There is trace mitral valve regurgitation. Tricuspid Valve The tricuspid valve leaflets are normal. Pericardium/Pleural The pericardium appears normal. Aorta The aortic root size at the sinus of Valsalva is normal. Left Ventricular Outflow Tract Name Value Normal LVOT 2D LVOT Diameter 2.1 cm LVOT Doppler LVOT Peak Gradient 6 mmHg LVOT Mean Gradient 3 mmHg LVOT VTI 32 cm LVOT VTI/AV VTI Ratio 0.6 LVOT Stroke Volume 116 ml LVOT CO 5.5 l/min LVOT CI 2.7 l/min/m2 Mitral Valve Name Value Normal MV Doppler MV Decel [place] 484 cm/s2 MV PHT
[2021-01-09 07:02] LABS: Thyroid Stimulating Hormone Reflex 0.556 uIU/mL (0.465-4.68)
[2021-01-09] MEDS: PANTOPRAZOLE 40 MG TABLET PO (08:13)
[2021-01-09] MEDS: MULTIVITAMINS /C LUTEIN (CENTRUM SILVER) TABLET *BKC 1 TAB PO (08:14)
[2021-01-09] MEDS: TAMSULOSIN HCL 0.4 MG CAPSULE PO (08:14)
[2021-01-09] MEDS: CHLORTHALIDONE 25 MG TABLET PO (08:14)
[2021-01-09] MEDS: ASPIRIN 81 MG CHEWABLE TABLET PO (08:29)
--- NOTE | 2021-01-09 11:40 | WPDNEURCNPN ---
Assessment and Plan Assessment and plan (1) Acute cerebrovascular accident: Code(s): I63.9 - Cerebral infarction, unspecified Status: Acute Additional Plan 70 years old with complaints of generalized weakness and dizziness in addition to the history of multiple medical problems and previous stroke at this stage able to communicate does have obvious generalized weakness and initial CT scan of the head revealed only right frontal lobe infarct an old infarct in the left caudate nucleus and right basal ganglia as well raising the possibility of subcortical strokes and with obvious underlying multiple medical problems treatment needs to be continued as such that includes atorvastatin, a hypertensive medication and 81 mg of aspirin daily. Consult date: 01/09/21 Time Seen: 09:45 HPI: Jose Perez is a 70 year old male admitted to the hospital for the complaints of intermittent dizziness of couple of weeks duration in addition patient carries the diagnosis of 1. Previous cerebrovascular accident 2. Peripheral arterial disease 3. Coronary artery disease presented to the hospital for the complaints of intermittent generalized weakness and dizziness coming and going without any seizure-like activity and without associated nausea vomiting blurred vision or headache or any other neurological symptomatology. Emergency Room initial CT scan demonstrated possible acute versus subacute right frontal lobe infarction for that reason patient was admitted to the hospital patient does have ongoing history of 1. Aortic regurgitation 2. Cardiac defibrillator in situ with underlying cardiomyopathy Review of Systems Review of Systems: All systems reviewed & are unremarkable except as noted in HPI and below PMFSH Past Medical History Medical History Aortic regurgitation Moderate by Echo 05/2019 BMI 26.0-26.9,adult BMI 28.0-28.9,adult CAD (coronary artery disease) History of myocardial infarction x2 and stents Cardiac defibrillator in situ Cardiomyopathy With history of AICD placement: Echo May 2019 with EF 25% with severe global HK, severe LV septal hypertrophy and DD grade 1. Severe LAE Colon cancer screening Constipation Constipation Dietary counseling and surveillance (06/15/16) Dyslipidemia Excessive cerumen in both ear canals Gout Hematuria History of CVA (cerebrovascular accident) 2014 History of heart attack Lumbar spinal stenosis Mass on back Mixed hyperlipidemia PAD (peripheral artery disease) Peripheral vascular disease With history of right femoral stent placement Poor kidney function Routine physical examination Screening for prostate cancer Screening for thyroid disorder Screening, lipid Tobacco abuse Urinary hesitancy Vascular disorder Weight loss Surgical History Surgical History History of AAA (abdominal aortic aneurysm) repair Hx of lumbosacral spine surgery 2016 S/P insertion of iliac artery stent Family History Family History Mother Myocardial infarct Cerebrovascular accident Hypertension Father Myocardial infarct Heart disease Hypertension Cerebrovascular accident Sibling Cerebrovascular accident Lung cancer Heart disease Social History Social History Social History: Lives with his girlfriend and his son. . Smokes 1ppd x 40yrs. Denies alcohol or drug use. Full code. Nominates his son, Mario to be the individual who would make decisions for him if he is unable. Smoking packs per day: 0.5 Smoking cigarettes per day: 10.0 Years smoked: 50 Smoking pack-years: 25.00 Smoking status: Current some day smoker Tobacco type: cigarettes Smoking end date: 10/25/18 Alcohol intake: never Drinks per week: 3 Substance use: never Gender identity (if verbalized by the patient):
--- NOTE | 2021-01-09 14:50 | PM.IMPN ---
Progress Note: A&P Assessment and Plan (1) Acute cerebrovascular accident: Code(s): I63.9 - Cerebral infarction, unspecified Status: Acute Assessment and Plan: Patient complaining of intermittent weakness and dizziness for [address] brain on 01/08 showing right frontal lobe infarct, likely acute or subacute and age-indeterminate infarct in left caudate nucleus. Echo pending. Carotid ultrasound showing >70% stenosis in the Rt ICA but les tahn near oclusion; left ICA <50%. Monitor blood pressure and allow for permissive hypertension. Continue aspirin therapy. Continue atorvastatin. Neurology has been consulted and they recommend continuing the ASA 81mg. Appreciate neurology input. PT/OT. (2) Elevated troponin: Code(s): R77.8 - Other specified abnormalities of plasma proteins Status: Acute Assessment and Plan: Patient denies chest pain. Troponin elevated on admission but appears to be chronically elevated. EKG showing IVCD and borderline ST T wave changes in the high lateral leads. The elevated troponin could be related to his underlying CKD. Continue telemetry. Will interrogate pacemaker. Follow-up on echo result. (3) CKD (chronic kidney disease): Qualifiers: Chronic kidney disease stage: stage 4 (severe) Qualified Code(s): N18.4 - Chronic kidney disease, stage 4 (severe) Code(s): N18.9 - Chronic kidney disease, unspecified Status: Chronic Assessment and Plan: Creatinine 2.4 on admission. Creatinine appears to be at baseline. Monitor renal function and urine output. Avoid nephrotoxic agents and renally dose medications. (4) Chronic anemia: Code(s): D64.9 - Anemia, unspecified Status: Chronic Assessment and Plan: Patient with chronic anemia on chart review. Likely anemia of chronic disease. No signs of acute blood loss. Hemoglobin 9.2 on admission but has dropped 8.2 today. Continue to monitor. Check iron studies. (5) Hyperlipidemia: Qualifiers: Hyperlipidemia type: unspecified Qualified Code(s): E78.5 - Hyperlipidemia, unspecified Code(s): E78.5 - Hyperlipidemia, unspecified Status: Acute Assessment and Plan: LFTs normal last month. Continue atorvastatin. (6) Peripheral vascular disease: Code(s): I73.9 - Peripheral vascular disease, unspecified Status: Chronic Assessment and Plan: As above. Patient has right carotid stenosis. Most likely etiology of his strokes. He will need to follow-up with vascular surgery for this. (7) Necrotic toes: Code(s): I96 - Gangrene, not elsewhere classified Status: Chronic Assessment and Plan: Secondary to severe peripheral artery disease. Pain control as needed. The patient is status post right femoral bypass with plans to see his vascular surgeon for possible left femoral-pop bypass surgery on 01/14. Wound care to evaluate. (8) CAD (coronary artery disease): Qualifiers: Associated angina: without angina Coronary Disease-Associated Artery/Lesion type: unspecified vessel or lesion type [place] vs. transplanted heart: [place] heart Qualified Code(s): I25.10 - Atherosclerotic heart disease of [place] coronary artery without angina pectoris Code(s): I25.10 - Atherosclerotic heart disease of [place] coronary artery without angina pectoris Status: Chronic Assessment and Plan: Stable. No complaints of chest pain. Continue aspirin, Lipitor and Coreg. (9) Hypertension: Qualifiers: Hypertension type: essential hypertension Qualified Code(s): I10 - Essential (primary) hypertension Code(s): I10 - Essential (primary) hypertension Status: Chronic Assessment and Plan: Patient's blood pressure was reviewed on 01/09 Blood pressure elevated at times. Will continue current medications. Monitor blood pressure. Continue Coreg for now
[2021-01-09] MEDS: GABAPENTIN 300 MG CAPSULE PO (21:20)
[2021-01-09] MEDS: ATORVASTATIN 40 MG TABLET PO (21:20)
[2021-01-10] VITALS (9 sets, daily range): BP systolic 134–160; BP diastolic 56–81; PULSE 60–75; RESP 16–18; TEMP 36.3–36.5; O2SAT 96–100
[2021-01-10 05:49] LABS: Troponin I 0.068 ng/mL (0.000-0.034)
[2021-01-10 06:30] LABS: Folic Acid 17.4 ng/mL (2.76->20)
[2021-01-10 06:45] LABS: Iron 31 ug/dL (49-181); Percent Iron Saturation 10 % (20-50)
[2021-01-10] MEDS: PANTOPRAZOLE 40 MG TABLET PO (08:53)
[2021-01-10] MEDS: TAMSULOSIN HCL 0.4 MG CAPSULE PO (08:53)
[2021-01-10] MEDS: carvediloL 25 MG TABLET PO (08:53)
[2021-01-10] MEDS: CHLORTHALIDONE 25 MG TABLET PO (08:54)
[2021-01-10] MEDS: ASPIRIN 81 MG CHEWABLE TABLET PO (09:01)
[2021-01-10 10:26] LABS: Anion Gap 8 mmol/L (8-16); Blood Urea Nitrogen 33 mg/dL (9-20); Calcium 9.1 mg/dL (8.4-10.2); Carbon Dioxide 32 mmol/L (22-30); Chloride 102 mmol/L (98-107); Estimated CRCL calculation 27 ml/min; Estimated Glomerular Filt Rate 27; Glucose 158 mg/dL (75-110); Potassium 3.6 mmol/L (3.4-5.0); Sodium 142 mmol/L (137-145)
[2021-01-10] MEDS: MULTIVITAMINS /C LUTEIN (CENTRUM SILVER) TABLET *BKC 1 TAB PO (11:24)
--- NOTE | 2021-01-10 14:58 | PM.IMPN ---
Progress Note: A&P Assessment and Plan (1) Acute cerebrovascular accident: Code(s): I63.9 - Cerebral infarction, unspecified Status: Acute Assessment and Plan: Patient complaining of intermittent weakness and dizziness for [address] brain on 01/08 showing right frontal lobe infarct, likely acute or subacute and age-indeterminate infarct in left caudate nucleus. Carotid ultrasound showing >70% stenosis in the Rt ICA but less than near oclusion; left ICA <50%. Monitor blood pressure and allow for permissive hypertension. Continue high intensity atorvastatin. Neurology has been consulted and they recommend continuing the ASA 81mg. Neurology input is appreciated. Appreciate PT/OT eval. (2) Heart failure with reduced ejection fraction: Code(s): I50.20 - Unspecified systolic (congestive) heart failure Status: Acute Assessment and Plan: Echo evaluated in light of CVA which demonstrates severely reduced left ventricular systolic function of 25-30%. CXR on presentation demonstrated cardiomegaly with congestive changes. He appears euvolemic. Consultation placed to Cardiology and input is appreciated. Continue carvedilol 25 mg BID. Blood pressure stable with this regimen. Monitor intake and output. Weight patient daily. Continue heart healthy diet. (3) Elevated troponin: Code(s): R77.8 - Other specified abnormalities of plasma proteins Status: Acute Assessment and Plan: Patient denies chest pain. Troponin elevated on admission with flat trend. Appears to be chronically elevated. EKG showing IVCD and borderline ST T wave changes in the high lateral leads. The elevated troponin could be related to his underlying CKD, possibly due to severe HFrEF. Continue telemetry. (4) CKD (chronic kidney disease): Qualifiers: Chronic kidney disease stage: stage 4 (severe) Qualified Code(s): N18.4 - Chronic kidney disease, stage 4 (severe) Code(s): N18.9 - Chronic kidney disease, unspecified Status: Chronic Assessment and Plan: Creatinine 2.4 on admission. Creatinine appears to be at baseline. Monitor renal function and urine output. Avoid nephrotoxic agents and renally dose medications. (5) Chronic anemia: Code(s): D64.9 - Anemia, unspecified Status: Chronic Assessment and Plan: Patient with chronic anemia on chart review. Iron studies intermediate. Likely related to anemia of chronic disease. No signs of acute blood loss. Continue to monitor. (6) Hyperlipidemia: Qualifiers: Hyperlipidemia type: unspecified Qualified Code(s): E78.5 - Hyperlipidemia, unspecified Code(s): E78.5 - Hyperlipidemia, unspecified Status: Acute Assessment and Plan: LFTs normal last month. Continue atorvastatin. (7) Peripheral vascular disease: Code(s): I73.9 - Peripheral vascular disease, unspecified Status: Chronic Assessment and Plan: As above. Patient has right carotid stenosis. Most likely etiology of his strokes. He will need to follow-up with vascular surgery for this. I have called his vascular surgeons office, Dr. Mg Young, and informed his medical cash poster of his results. He has an appointment scheduled on 01/14/21. She reports he has not been evaluated for carotid disease in the past, and Dr. Young will review his ultrasound from this hospital stay. (8) Necrotic toes: Code(s): I96 - Gangrene, not elsewhere classified Status: Chronic Assessment and Plan: Secondary to severe peripheral artery disease. Pain control as needed. The patient is status post right femoral bypass with plans to see his vascular surgeon for possible left femoral-pop bypass surgery on 01/14. He has been evaluated by wound care nurse. Continue his home regimen of xeroform and dry gauze dressings. (9) CAD (coronary artery disease): Qualifiers: As
--- NOTE | 2021-01-10 15:40 | PM.CNCAR ---
Assessment and Plan Additional Plan 70-year-old man with: Ischemic heart disease severe ischemic cardiomyopathy being managed with the above medical regimen as well as a ICD device. The only obvious omission from his medical regimen is the lack of an MILADY-inhibitor or an ARB. I think it is safe to assume that his longstanding cone sewer has recognize this and has elected to withhold this presumably because of his renal insufficiency. He is clinically very stable and there is no sign of any decompensated heart failure. I do not think there is any logical or appropriate reason for me to be metal in his medical regimen here at [place] especially if he is about ready to be discharged this afternoon and he really did not come in here with a decompensated cardiac problem. His echocardiogram demonstrates a relatively advanced ischemic cardiomyopathy but as I mentioned in the dictation it is really not appreciably changed comparison to 1 from 2018 in the office of his cone sewer. I believe he can be dismissed safely from the cardiac perspective his follow-up will be with his long-standing established cone sewer in as such follow-up in our office will not be arranged. Erik Olmstead MD [facility] History of Present Illness History of Present Illness Consult date/time: 01/10/21 15:40 Reason For Visit: acute CVA Narrative: This is a 70-year-old man I am requested to see this afternoon by the hospitalists because of cardiomyopathy. The patient was hospitalized here couple of days ago with symptoms of dizziness and nausea and it was felt that he might have had a stroke. The patient states that the physicians that have seen him a thought that he probably did have a small stroke. He is no longer having any of the symptoms that he came in with. He does not describe any obvious cardiac symptomatology. He specifically says he has not been having troubles with chest pain shortness of breath orthopnea or PND. He is known to have a history of significant coronary and peripheral vascular disease. He has a cone sewer, Dr. Moreno at [facility] who manages his case. He states that he had a significant myocardial infarction he estimates about 15 or 20 years ago. He says he was treated as an emergency with a percutaneous procedure at [facility] [place]. After this event he has had significantly low ejection fraction and he has been managed with medication as well as a pacemaker/defibrillator device. His medical regimen consists of aspirin, atorvastatin, carvedilol, chlorthalidone. He is not on an MILADY-inhibitor or an ARB. He does have chronic kidney disease with creatinine of about 2.4. An echocardiogram was requested during this hospitalization which I read earlier today showing left ventricular enlargement, infero posterior akinesia a low ejection fraction of about 25%. I did comment that an echocardiogram done in the office of [facility] in 2019 had findings that were essentially unchanged from this. After this report hit the chart I was consulted to see the patient. The patient states he is not to as stated above describing any cardiac symptoms at all at and he is hoping to be discharged today. He also has a history of significant peripheral vascular disease and apparently has some gangrenous toes that are being treated by wound care he is scheduled to see a vascular surgeon in at [facility] next week. Review of Systems Constitutional: Constitutional: Reports weakness Eyes: Eyes: Reports no additional eye complaints ENT: Reports system reviewed and no additional complaints, except as documented Cardiovascular: Cardiovascular: Reports no additional cardiovascular complaints Respiratory: Respiratory: Reports no additional respiratory complaints Gastrointestinal: Gastrointestinal: Reports nausea Musculoskeletal: Musculoskeletal: Reports arthralgias Neurologic: Reports as per HPI Endocrine:
--- NOTE | 2021-01-10 17:13 | PM.DS ---
DS: Admitting Diagnosis Admitting Diagnosis Admitting Diagnosis: Acute CVA DS: Discharge Diagnosis Discharge Diagnosis (1) Acute cerebrovascular accident: Code(s): I63.9 - Cerebral infarction, unspecified Status: Acute Assessment and Plan: Patient presented with complaints of intermittent weakness and dizziness for [address] brain on 01/08 showed right frontal lobe infarct, likely acute or subacute and age-indeterminate infarct in left caudate nucleus. Carotid ultrasound showed >70% stenosis in the Rt ICA but less than near occlusion; left ICA <50%. Blood pressure was monitored. Continue high intensity atorvastatin. Seen in consultation by Dr. Otero, Neurology, who recommend continuing aspirin 81mg. He had no focal neuro deficits. He was evaluated by PT/OT and will continue PT/OT with home health. (2) Heart failure with reduced ejection fraction: Code(s): I50.20 - Unspecified systolic (congestive) heart failure Status: Acute Assessment and Plan: Echo evaluated in light of CVA which demonstrates severely reduced left ventricular systolic function of 25-30%. He had an echo in 2019 that was unchanged. CXR on presentation demonstrated cardiomegaly with congestive changes. He appears euvolemic. He was seen in consultation by cardiology did not recommend any changes to his medical regimen. He can follow-up with his primary business travel consultant Dr. Moreno. (3) Elevated troponin: Code(s): R77.8 - Other specified abnormalities of plasma proteins Status: Acute Assessment and Plan: Patient denied chest pain. Troponin elevated on admission with flat trend. Appears to be chronically elevated. EKG showing IVCD and borderline ST T wave changes in the high lateral leads. The elevated troponin could be related to his underlying CKD, possibly due to severe HFrEF. ACS felt to be unlikely. (4) CKD (chronic kidney disease): Qualifiers: Chronic kidney disease stage: stage 4 (severe) Qualified Code(s): N18.4 - Chronic kidney disease, stage 4 (severe) Code(s): N18.9 - Chronic kidney disease, unspecified Status: Chronic Assessment and Plan: Creatinine 2.4 on admission. This was consistent with baseline. (5) Chronic anemia: Code(s): D64.9 - Anemia, unspecified Status: Chronic Assessment and Plan: Patient with chronic anemia on chart review. Iron studies intermediate. Likely related to anemia of chronic disease. No signs of acute blood loss. H&H remained stable. (6) Hyperlipidemia: Qualifiers: Hyperlipidemia type: unspecified Qualified Code(s): E78.5 - Hyperlipidemia, unspecified Code(s): E78.5 - Hyperlipidemia, unspecified Status: Acute Assessment and Plan: LFTs normal last month. Continue atorvastatin. (7) Peripheral vascular disease: Code(s): I73.9 - Peripheral vascular disease, unspecified Status: Chronic Assessment and Plan: Patient has right carotid stenosis. Most likely etiology of his strokes. He will need to follow-up with vascular surgery for this. I called his vascular surgeons office, Dr. Mg Young, and informed his medical delivery driver of his results. He has an appointment scheduled on 01/14/21. She reports he has not been evaluated for carotid disease in the past, and Dr. Young will review his ultrasound from this hospital stay. (8) Necrotic toes: Code(s): I96 - Gangrene, not elsewhere classified Status: Chronic Assessment and Plan: Secondary to severe peripheral artery disease. Pain control as needed. The patient is status post right femoral bypass with plans to see his vascular surgeon for possible left femoral-pop bypass surgery on 01/14. He has been evaluated by wound care nurse. Continue his home regimen of xeroform and dry gauze dressings. (9) CAD (coronary artery disease): Qualifiers: Xiong
== END 2021-01-10 18:02 | disposition home health service (06) | DRG 65 ==
LOC: ANHED 14:34 → ANHIMU 16:41
PROVIDERS: Family Medicine; Internal Medicine; Admitting Provider Internal Medicine; Emergency Provider General Practice; PCP Family Medicine; Visit Provider Physician Assistant
DX: I63.9 Cerebral infarction, unspecified (principal); N18.4 Chronic kidney disease, stage 4 (severe); I96 Gangrene, not elsewhere classified; E11.52 Type 2 diabetes mellitus with diabetic peripheral angiopathy with gangrene; R42 Dizziness and giddiness; R53.1 Weakness; I25.5 Ischemic cardiomyopathy; D63.1 Anemia in chronic kidney disease; E11.22 Type 2 diabetes mellitus with diabetic chronic kidney disease; E78.5 Hyperlipidemia, unspecified; I25.10 Atherosclerotic heart disease of native coronary artery without angina pectoris; I35.1 Nonrheumatic aortic (valve) insufficiency; E87.6 Hypokalemia; L97.529 Non-pressure chronic ulcer of other part of left foot with unspecified severity; L97.519 Non-pressure chronic ulcer of other part of right foot with unspecified severity; F17.210 Nicotine dependence, cigarettes, uncomplicated; M48.061 Spinal stenosis, lumbar region without neurogenic claudication; I25.2 Old myocardial infarction; Z95.820 Peripheral vascular angioplasty status with implants and grafts; Z95.5 Presence of coronary angioplasty implant and graft; Z95.810 Presence of automatic (implantable) cardiac defibrillator
CPT/HCPCS: 36415; 70450; 71045; 76775; 80048; 81001; 82607; 82728; 82746; 83540; 83550; 84443; 84484; 85025; 85610; 85730; 93005; 93306; 93880; 96374; 97110; 97162; 97166; 97530; 99285; A9270; G0378; J2405

== ENCOUNTER 2021-05-01 08:42 | Emergency (ER) | payer MEDICARE, SELFPAY ==
[2021-05-01] VITALS (7 sets, daily range): BP systolic 131–198; BP diastolic 57–108; PULSE 82–91; RESP 18–23; TEMP 36.7; O2SAT 91–98
--- NOTE | ~2021-05-01 | CT_ITS ---
EXAMINATION: CT abdomen pelvis wo con EXAM DATE: 05/01/2021 09:58 INDICATION: Right lower quadrant and right flank pain for 2 weeks. Dysuria, urinary retention. TECHNIQUE: Spiral CT of the abdomen and pelvis was performed without contrast. Axial, coronal and sag ittal images were reviewed. The dose-length product (DLP) for this examination was 316.62 mGy-cm. T he exposure was tailored according to patient size (auto mA exposure control), and iterative reconstr uction (ASIR) was used as additional dose reduction technique. There is no prior study for compariso n. FINDINGS: The lower abdominal aorta measures 6.1 cm. There are indistinct fat planes surrounding the lower abdominal aorta, can be a sign of impending rupture. No retroperitoneal hematoma suspected. The mid abdominal aorta measures 4.9 cm, and at the aortic hiatus there is a saccular outpouching of the aorta, diameter including outpouching measures up to 5.6 cm. Right common iliac artery measures 2.4 cm diameter, the left measuring 2.2 cm. There are surgical clips in the inguinal canal regions bilate rally, patient probably has bilateral femoral-popliteal bypass grafts, correlate with surgical histor y. There is large amount of gas within the bladder. Also gas along the bladder wall nondependent aspect, could be emphysematous cystitis. Correlate with urinalysis. There is moderate to severe left renal a trophy, mild to moderate right renal atrophy. There are scattered renal lesions consistent with cysts . There is an exophytic indeterminate lesion at the lower pole right kidney measuring 1 cm, probably hemorrhagic cyst but solid mass not excludable. No hydronephrosis or nephrolithiasis. Mild prostato megaly. The liver, spleen, adrenal glands and pancreas are unremarkable. Gallbladder is unremarkable. No bi liary obstruction. There is no retroperitoneal or pelvic lymphadenopathy. The appendix is normal. The stomach and small bowel are unremarkable. There is expected amount of c olonic stool. No free intraperitoneal gas. There is cardiomegaly. Pacemaker/AICD lead. Moderate r ight, small to moderate left pleural effusions. Bibasilar groundglass opacity, probably edema. Segmen cyndi right lower lobe, subsegmental left lower lobe atelectasis. Small to moderate pericardial effusio n. The lung bases are unremarkable. The bones are unremarkable. IMPRESSION: 1. Diffuse abdominal aortic ectasia with caliber measuring up to 5.6 cm at aortic hiatus, and lower abdominal aorta up to 6.1 cm with surrounding indistinct fat planes, can be sign of early impending r upture. 2. Large amount of bladder gas and probably also some in the bladder wall, emphysematous cystitis. C orrelate with urinalysis. 3. Findings consistent with CHF exacerbation. Moderate right, small to moderate left pleural effusio ns. Adjacent atelectasis. 4. Indeterminate 1 cm right renal lesion probably hemorrhagic cyst but solid mass not excludable. I discussed impression 1-[address] Tree Chin MD at 05/01/2021 10:10 CDT Reviewed, dictated and finalized at location B. IMPRESSION: 1. Diffuse abdominal aortic ectasia with caliber measuring up to 5.6 cm at aor tic hiatus, and lower abdominal aorta up to 6.1 cm with surrounding indistinct fat planes, can be sign of early impending rupture. 2. Large amount of bladder gas and probably also some in the bladder wall, emp hysematous cystitis. Correlate with urinalysis. 3. Findings consistent with CHF exacerbation. Moderate right, small to moderat e left pleural effusions. Adjacent atelectasis. 4. Indeterminate 1 cm right renal lesion probably hemorrhagic cyst but solid m ass not excludable. I discussed impression 1-[address] Tree Chin MD at 05/01/2021 10:10 CDT
[2021-05-01] MEDS: MORPHINE SULFATE (*CRX) 4 MG/ML INJ IV PUSH (09:03)
[2021-05-01] MEDS: ONDANSETRON INJ 4 MG/2 ML VIAL IV PUSH (09:05)
[2021-05-01 09:30] LABS: Basophils Percent Auto 0.2 % (0.2-1.2); Eosinophils Percent Auto 0.2 % (0-4.4); Hematocrit 25.5 % (42.0-52.0); Hemoglobin 7.9 g/dL (14.0-18.0); Immature Granulocyte Absolute 0.07 K/mm3 (0.00-0.031); Immature Granulocyte Percent A 0.6 % (0-0.5); Lymphocytes Absolute Auto 0.75 K/mm3 (0.9-3.2); Mean Corpuscular Hemoglobin 30.7 pg (26-34); Mean Corpuscular Volume 99.2 fl (80-100); Mean Platelet Volume 12.6 fl (7.4-10.4); Monocytes Absolute Auto 0.7 K/mm3 (0.1-0.6); Monocytes Percent Auto 5.4 % (2.6-8.5); Neutrophils Absolute Auto 10.9 K/mm3 (1.3-6.7); Neutrophils Percent Auto 87.6 % (45.5-73.1); Platelet Count Result 131 k/mm3 (150-375); Red Blood Count 2.57 M/mm3 (4.6-6.20); Red Cell Distribution Width 18.1 % (11.5-14.5); White Blood Count 12.4 K/mm3 (4.5-10.0)
[2021-05-01 09:46] LABS: Anion Gap 14 mmol/L (8-16); Blood Urea Nitrogen 53 mg/dL (9-20); Calcium 9.5 mg/dL (8.4-10.2); Carbon Dioxide 21 mmol/L (22-30); Chloride 103 mmol/L (98-107); Estimated Glomerular Filt Rate 14; Glucose 123 mg/dL (75-110); Potassium 3.7 mmol/L (3.4-5.0); Sodium 138 mmol/L (137-145)
[2021-05-01 09:53] LABS: Add Urine Microscopic? YES; Appearance Urine Cloudy (Clear); Bacteria Urine 1+ /hpf; Bilirubin Urine Negative (Negative); Blood Urine 3+ (Negative); Color Urine Yellow (Yellow); Glucose Urine UA Negative (Negative); Ketones Urine Negative (Negative); Leukocyte Esterase Ur Trace LEU/UL (Negative); Nitrate Urine Negative (Negative); Protein Urine 3+ mg/dL (Negative); RBC Urine >75 /hpf (0-2); Specific Grav Ur 1.018 (1.001-1.035); Urobilinogen Urine Negative mg/dL (<2.0); WBC Urine 51-75 /hpf
[2021-05-01 10:50] LABS: INR 1.4; Prothrombin Time 17.1 Seconds (11.1-14.7)
--- NOTE | 2021-05-01 10:53 | ED.ABDPAIN ---
HPI - Abdominal Pain General Chief Complaint: Abdominal Pain Stated Complaint: ABD PAIN Time Seen by Provider: 05/01/21 08:45 History of Present Illness HPI narrative: Patient is a 70-year-old male who presents ER with abdominal pain. Not localized to the upper or lower abdominal region. No radiation. Reports its been intermittent over the last few weeks but over last 24 hours it has been persistent and did not allow him to sleep. He reports he also has been having dysuria over the last week with urinary frequency. Denies fevers or chills or sweats. No chest pain or chest pressure. He takes a baby aspirin and is on no other blood thinners. Patient is very hard of hearing and also poor historian. Related Data Home Medications Medication Instructions Recorded Confirmed carvedilol 25 mg tablet 25 mg PO Q12H 09/05/19 01/08/21 chlorthalidone 25 mg tablet 25 mg PO DAILY 09/05/19 01/08/21 atorvastatin 40 mg tablet 40 mg PO HS 12/18/20 01/08/21 tamsulosin 0.4 mg capsule 0.4 mg PO DAILY 12/18/20 01/08/21 Adults Multivitamin 1 tablet PO DAILY 01/08/21 01/08/21 pantoprazole 40 mg PO QAM 01/08/21 01/08/21 docusate sodium 100 mg PO DAILY 05/01/21 05/01/21 iron fum-vit C-ascorbate sod [Iron tablet PO 05/01/21 Plus Vitamin C] Allergies Allergy/AdvReac Type Severity Reaction Status Date / Time No Known Allergies Allergy Verified 05/01/21 08:51 Review of Systems Review of Systems: All systems reviewed & are unremarkable except as noted in HPI and below Constitutional: Constitutional: Denies chills, Denies fever(s) and Denies weakness ENT: Denies nasal congestion and Denies sore throat Gastrointestinal: Gastrointestinal: Reports abdominal pain, Denies constipation, Denies nausea and Denies vomiting Genitourinary: Genitourinary: Reports dysuria and Reports urinary frequency Musculoskeletal: Musculoskeletal: Denies back pain and Denies muscle cramps PMFSH Past Medical History Medical History Aortic regurgitation Moderate by Echo 05/2019 BMI 26.0-26.9,adult BMI 28.0-28.9,adult CAD (coronary artery disease) History of myocardial infarction x2 and stents Cardiac defibrillator in situ Cardiomyopathy With history of AICD placement: Echo May 2019 with EF 25% with severe global HK, severe LV septal hypertrophy and DD grade 1. Severe LAE Colon cancer screening Constipation Constipation Dietary counseling and surveillance (06/15/16) Dyslipidemia Excessive cerumen in both ear canals Gout Hematuria History of CVA (cerebrovascular accident) 2014 History of heart attack Lumbar spinal stenosis Mass on back Mixed hyperlipidemia PAD (peripheral artery disease) Peripheral vascular disease With history of right femoral stent placement Poor kidney function Routine physical examination Screening for prostate cancer Screening for thyroid disorder Screening, lipid Tobacco abuse Urinary hesitancy Vascular disorder Weight loss Surgical History Surgical History History of AAA (abdominal aortic aneurysm) repair Hx of lumbosacral spine surgery 2016 S/P insertion of iliac artery stent Family History Family History Mother Myocardial infarct Cerebrovascular accident Hypertension Father Myocardial infarct Heart disease Hypertension Cerebrovascular accident Sibling Cerebrovascular accident Lung cancer Heart disease Social History Social History Social History: Lives with his girlfriend and his son. . Smokes 1ppd x 40yrs. Denies alcohol or drug use. Full code. Nominates his son, Mario to be the individual who would make decisions for him if he is unable. Smoking packs per day: 0.5 Smoking cigarettes per day: 10.0 Years smoked: 50 Smoking pack-years: 25.00 Smoking status: Current some day smoke
[2021-05-01 10:54] LABS: Partial Thromboplastin Time 35.6 SECONDS (22.3-36.8)
[2021-05-01] MEDS: niCARdipine 20 MG/200 ML 20 MG/200 ML BAG 50 MG IV CONT (12:21)
[2021-05-01 13:03] LABS: EDCOVIDSCREEN Negative (Negative)
== END 2021-05-01 13:48 | disposition short-term general hospital (02) ==
PROVIDERS: Emergency Provider Emergency Medicine; PCP Family Medicine
DX: I71.4 Abdominal aortic aneurysm, without rupture (principal); N30.80 Other cystitis without hematuria; I25.10 Atherosclerotic heart disease of native coronary artery without angina pectoris; I73.9 Peripheral vascular disease, unspecified; E78.2 Mixed hyperlipidemia; I25.2 Old myocardial infarction; F17.210 Nicotine dependence, cigarettes, uncomplicated; Z86.73 Personal history of transient ischemic attack (TIA), and cerebral infarction without residual deficits; Z20.822 Contact with and (suspected) exposure to COVID-19
CPT/HCPCS: 36415; 74176; 80048; 81001; 85025; 85610; 85730; 87040; 87077; 87086; 87088; 87186; 87426; 96365; 96367; 96375; 99285; C9803; J0696; J2270; J2405